=== PATIENT | female | born 1970 | race Caucasian/White ===

== ENCOUNTER 2016-07-08 06:35 | Inpatient (IN) | payer BC ==
[2016-05-27 13:29] VITALS: BMI 44.0
[2016-05-27 13:41] VITALS: BMI 44.0
--- NOTE | 2016-05-27 14:03 | PAT Medication Instructions ---
Service Date May 27, 2016. Current Home Medication List Acetaminophen (Tylenol), 1,000 MG PO PRN Amphetamine-Dextroamphetamine 20MG (Adderall 20MG), 20 MG PO TID Bupropion (Wellbutrin Sr), 150 MG PO TID Diazepam (Valium), 5 MG PO BID PRN for RN Escitalopram Oxalate (Lexapro), 20 MG PO BID Ibuprofen (Advil), 600 MG PO Q6-8H Mesalamine (Pentasa), 1,000 MG PO TID Oxycodone/Acetaminophen 10MG/325MG (Percocet 10MG/325MG), 2 TAB PO Q6H PRN for N Trazodone Hcl (Trazodone), 50 MG PO HS Medication Instructions For Your Scheduled Surgery - Check with surgeon/prescribing physician for instructions: Mesalamine (Pentasa), 1,000 MG PO TID - Check with surgeon for instructions: Ibuprofen (Advil), 600 MG PO Q6-8H - Hold the following medications the morning of surgery: Amphetamine-Dextroamphetamine 20MG (Adderall 20MG), 20 MG PO TID - Take the following medications the morning of surgery with a sip of water: Escitalopram Oxalate (Lexapro), 20 MG PO BID Diazepam (Valium), 5 MG PO BID PRN for RN Bupropion (Wellbutrin Sr), 150 MG PO TID Acetaminophen (Tylenol), 1,000 MG PO PRN Oxycodone/Acetaminophen 10MG/325MG (Percocet 10MG/325MG), 2 TAB PO Q6H PRN for N (okay to take up to 4 hours prior to surgery if needed) - Take the following medications as scheduled the night before surgery: Trazodone Hcl (Trazodone), 50 MG PO HS Escitalopram Oxalate (Lexapro), 20 MG PO BID Diazepam (Valium), 5 MG PO BID PRN for RN Bupropion (Wellbutrin Sr), 150 MG PO TID Acetaminophen (Tylenol), 1,000 MG PO PRN Amphetamine-Dextroamphetamine 20MG (Adderall 20MG), 20 MG PO TID Oxycodone/Acetaminophen 10MG/325MG (Percocet 10MG/325MG), 2 TAB PO Q6H PRN for N If you have any questions please call us at [phone] (Frida Lawton PA-C ) or [phone] or [phone]
--- NOTE | 2016-05-27 14:54 | DIAGNOSTIC IMAGING REPORT ---
CHEST PREADMISSION(PA/LAT) CLINICAL HISTORY: Preoperative chest COMPARISON STUDY: No previous studies for comparison. FINDINGS: The cardiac and mediastinal contours are normal. There is no evidence of focal pulmonary consolidation. There is no evidence of failure. No pleural effusions are visualized.[ IMPRESSION: No active disease in the chest. Electronically signed by: Eligio Desir M.D. 05/27/2016 2:53 PM Dictated Date/Time: 05/27/2016 2:53 PM
[2016-05-27 15:37] LABS: PROTHROMBIN TIME (PATIENT) 10.4 SECONDS (9.0-12.0)
[2016-05-28 06:25] LABS: ESTIMATED AVERAGE GLUCOSE 131 mg/dl; HA1C FLAG Normal (Normal)
--- NOTE | 2016-07-07 07:45 | History and Physical ---
History & Physical Date of Service Jul 07, 2016. History & Physical PROCEDURE: Left knee replacement. HISTORY OF PRESENT ILLNESS: Julia is a pleasant 45-year-old female who presents for preoperative evaluation prior to her left knee replacement. She states she has been having pain in this knee for many years now, which has gradually worsened, has not now gotten to the point it is affecting her daily activities including walking, standing, going up and down steps. She has tried oral anti-inflammatories without relief. She has tried Synvisc-One in both of her knees, without relief. She has had previous knee arthroscopies. At this point in time, she has failed conservative measures and after discussing further care would like to proceed with a left knee replacement. she recently had her right knee replaced and is doing well. PAST MEDICAL HISTORY: 1. Sleep apnea, uses CPAP machine. 2. Obesity. 3. Anxiety/depression. ALLERGIES: No known drug allergies. MEDICATIONS: 1. Adderall 20 mg t.i.d. 2. Lexapro 20 mg in the morning, 1/2 tablet at noon. 3. Wellbutrin 150 mg 2 in the morning, 1 at noon. 4. Ibuprofen as needed. 5. Acetaminophen 1000 mg 3 times a day. 6. Valium 5 mg 1/2 tablet prior to bed. 7. Melatonin. PAST SURGICAL HISTORY: 1. Left knee arthroscopy with lateral release. 2. Repair of hernia. 3. Laparoscopic cholecystectomy. 4. Right TKA May 2016 FAMILY HISTORY: Noncontributory. SOCIAL HISTORY: The patient denies a history of smoking or tobacco use. No alcohol consumption. REVIEW OF SYSTEMS: Otherwise negative. Please see HPI for pertinent positives. PHYSICAL EXAMINATION: GENERAL: Pleasant female in no acute distress, alert and oriented x3. She is 5 foot 6, weighs 260 pounds. HEENT: Normocephalic, atraumatic. CARDIAC: Regular rate and rhythm. No murmurs or gallops appreciated. Resting pulse 80 beats per minute. LUNGS: Clear to auscultation without rales or wheeze bilaterally. ABDOMEN: Soft, nontender. Bowel sounds present. EXTREMITIES: Left lower extremity is neurovascularly intact. Calves are soft and nontender. DP pulse +2. Overall has varus alignment. Has positive crepitation with motion, range of motion is 0/5/115. Her knee is ligamentously stable. She has diffuse tenderness to the knee. IMAGING: Reviewed of the left knee show complete loss of medial joint space with [id number] changes including joint space narrowing, subchondral sclerosis, osteophyte formation noted. Also has significant patellofemoral DJD. IMPRESSION: 1. Left knee degenerative joint disease. 2. Past medical history as outlined above. PLAN: Further care discussed with patient. At this point in time, has failed conservative measures and would like to proceed with a Left knee replacement. Will place on aspirin 81 mg p.o. b.i.d. for a month postop. Will plan of discharge home with home health physical therapy.
[~2016-07-08] VITALS: Ht 167.6 cm; Wt 124.6 kg
[2016-07-08] VITALS (10 sets, daily range): BP systolic 101–159; BP diastolic 58–87; PULSE 82–96; TEMP 36.6–37.4; O2SAT 94–98; Ht 167.6 cm; Wt 124.6 kg
[2016-07-08] MEDS: TRANEXAMIC ACID INJ 1,000 MG in SODIUM CHLORIDE 0.9% 100ML 100 ML IV SCH ×2 (06:00→06:30)
[~2016-07-08 06:35] MED LIST: ACET-1256 PO; ACETAMINOPHEN 500 MG TAB PO SCH; AMPH20TA2 PO; BUPR-79 PO; CEFAZOLIN 3000 MG/65 ML D5W 65 ML IV SCH; CeleBREX 200 MG CAP PO SCH; DEXAMETHASONE 4 MG TAB PO SCH; DIAZ-165 PO; ESCI1TAB10 PO; FAMOTIDINE 20 MG TAB PO SCH; GABAPENTIN 300 MG CAP PO SCH; IBUP-1050 PO; LACTATED RINGER'S 1000ML 1,000 ML IV SCH; LACTATED RINGER'S 1000ML 500 ML IV ONE; LACTATED RINGER'S 1000ML IV SCH; METOCLOPRAMIDE HCL 10 MG TAB PO SCH; OXYC-106 PO; PNT500 PO; ROPIVACAINE 5MG/ML 30 ML 150 MG, BUPIVACAINE/EPINEPHR 0.5% MPF 30 ML, KETOROLAC TROMETH... INFIL SCH; TRAZ50TA35 PO
[2016-07-08] MEDS ORDERED: PROPOFOL IV EMULSION 10 MG/ML 20 ML VIAL IV ONE ×3 (06:58→09:23)
[2016-07-08] MEDS ORDERED: ONDANSETRON INJ 2 MG/ML 2 ML VIAL ONE (06:58)
[2016-07-08] MEDS ORDERED: MIDAZOLAM HCL 1 MG/ML 2ML VIAL ONE ×2 (06:58→08:29)
[2016-07-08] MEDS ORDERED: FENTANYL CITRATE INJ 50 MCG/1 ML 2 ML VIAL ONE (06:58)
--- NOTE | 2016-07-08 07:08 | History & Physical Bridge Note ---
H&P Re-Evaluation Bridge Note: I have examined the patient, reviewed the History & Physical and in the interval since the performance of the History & Physical I have noted the following changes of clinical significance: No changes noted
[2016-07-08] MEDS ORDERED: ORTHO JOINT ANESTHETIC ONE (07:12)
[2016-07-08] MEDS ORDERED: POVIDONE-IODINE OP SOLN 30 ML BTL ONE (07:12)
[2016-07-08] MEDS ORDERED: BACITRACIN 50000 UNIT VIAL ONE (07:13)
[2016-07-08] MEDS ORDERED: BUPIVACAINE 0.5 % 5 MG/1 ML PF 10ML VIAL ONE (07:41)
[2016-07-08] MEDS ORDERED: BUPIVACAINE 0.25% 30 ML VIAL ONE (07:42)
[2016-07-08] MEDS ORDERED: ATROPINE SULFATE 0.1 MG/ML 5ML SYR IV PRN (07:45)
[2016-07-08] MEDS ORDERED: EpHEDrine SULFATE INJ 50 MG/ML AMP IV PRN (07:45)
[2016-07-08] MEDS ORDERED: FENTANYL CITRATE INJ 50 MCG/1 ML 2 ML VIAL IV PRN (07:45)
[2016-07-08] MEDS ORDERED: ONDANSETRON INJ 2 MG/ML 2 ML VIAL IV PRN ×2 (07:45→10:15)
--- NOTE | 2016-07-08 09:06 | History and Physical ---
History & Physical Date of Service Jul 08, 2016. History & Physical PROCEDURE: Right knee replacement. HISTORY OF PRESENT ILLNESS: Julia is a pleasant 45-year-old female who presents for preoperative evaluation prior to her right knee replacement. She states she has been having pain in this knee for many years now, which has gradually worsened, has not now gotten to the point it is affecting her daily activities including walking, standing, going up and down steps. She has tried oral anti-inflammatories without relief. She has tried Synvisc-One in both of her knees, without relief. She has had previous knee arthroscopies. At this point in time, she has failed conservative measures and after discussing further care would like to proceed with a right knee replacement. PAST MEDICAL HISTORY: 1. Sleep apnea, uses CPAP machine. 2. Obesity. 3. Anxiety/depression. ALLERGIES: No known drug allergies. MEDICATIONS: 1. Adderall 20 mg t.i.d. 2. Lexapro 20 mg in the morning, 1/2 tablet at noon. 3. Wellbutrin 150 mg 2 in the morning, 1 at noon. 4. Ibuprofen as needed. 5. Acetaminophen 1000 mg 3 times a day. 6. Valium 5 mg 1/2 tablet prior to bed. 7. Melatonin. PAST SURGICAL HISTORY: 1. Left knee arthroscopy with lateral release. 2. Repair of hernia. 3. Laparoscopic cholecystectomy. FAMILY HISTORY: Noncontributory. SOCIAL HISTORY: The patient denies a history of smoking or tobacco use. No alcohol consumption. REVIEW OF SYSTEMS: Otherwise negative. Please see HPI for pertinent positives. PHYSICAL EXAMINATION: GENERAL: Pleasant female in no acute distress, alert and oriented x3. She is 5 foot 6, weighs 260 pounds. HEENT: Normocephalic, atraumatic. CARDIAC: Regular rate and rhythm. No murmurs or gallops appreciated. Resting pulse 80 beats per minute. LUNGS: Clear to auscultation without rales or wheeze bilaterally. ABDOMEN: Soft, nontender. Bowel sounds present. EXTREMITIES: Right lower extremity is neurovascularly intact. Calves are soft and nontender. DP pulse +2. Overall has varus alignment. Has positive crepitation with motion, range of motion is 0/5/115. Her knee is ligamentously stable. She has diffuse tenderness to the knee. IMAGING: Reviewed of the right knee show complete loss of medial joint space with [id number] changes including joint space narrowing, subchondral sclerosis, osteophyte formation noted. Also has significant patellofemoral DJD. IMPRESSION: 1. Right knee degenerative joint disease. 2. Past medical history as outlined above. PLAN: Further care discussed with patient. At this point in time, has failed conservative measures and would like to proceed with a right knee replacement. Will place on aspirin 81 mg p.o. b.i.d. for a month postop. Will plan of discharge home with home health physical therapy.
--- NOTE | 2016-07-08 09:37 | [facility] Post Operative Brief Note ---
Immediate Operative Summary Operative Date Jul 08, 2016. Pre-Operative Diagnosis severe djd rt knee Post-Operative Diagnosis severe djd rt knee Procedure(s) Performed Rt total knee arthroplasty keaton almanza 2 Surgeon Abdias Jetting Machine Operator Surgeon(s) Nicole Estimated Blood Loss 5cc Findings severe djd rt knee Specimens bone and cartilage Complication(s) None Disposition Recovery Room / PACU
--- NOTE | 2016-07-08 10:01 | OPERATIVE REPORT ---
DATE OF OPERATION: 07/08/2016 PREOPERATIVE DIAGNOSIS: Severe end-stage tricompartmental degenerative joint disease, right knee. POSTOPERATIVE DIAGNOSIS: Severe end-stage tricompartmental degenerative joint disease, right knee. PROCEDURE: Right total knee arthroplasty utilizing Fisher \T\ Nephew Journey II nonblock total knee arthroplasty size 4 femur, 3 tibia, 10 poly, and 29 oval patella. SURGEON: Bennie Calero DO PROTECTIVE SIGNAL SUPERINTENDENT: Octavio Dash PA-C who was necessary for prepping, draping, retraction, wound closure of deep fascia, subQ and skin and was necessary for the case. ESTIMATED BLOOD LOSS: 5 mL. TOURNIQUET TIME: 40 minutes. COMPLICATIONS: None. HISTORY OF PRESENT ILLNESS: The patient is a 45-year-old white female with severe end-stage tricompartmental degenerative joint disease. She has failed attempts of previous conservative management and in light of her young age including bracing, anti-inflammatories, corticosteroid injections, viscosupplementations, relative rest, activity modification and after failing all attempts at conservative management, decision was made. Risks and complications were discussed regarding right total knee arthroplasty. DESCRIPTION OF PROCEDURE: The patient was properly prepped and draped in supine position for total knee arthroplasty after identifying the appropriate surgical site. An anterior midline incision was made through the subcutaneous tissues down to the region of the extensor mechanism. A medial parapatellar incision was subsequently made. Meticulous hemostasis was obtained and performed at all times. The patella having been subluxed lateralward, medial and lateral meniscal remnants were excised. The patellar cut was then initially made and was sized to the appropriate size. After subluxing the tibia forward the appropriate meniscal fragments having been removed the distal femur was then cut first utilizing a Fisher and Nephew block. The distal femoral cuts and chamfer cuts were all made under direct visualization and the proximal tibial osteotomy cut was also made utilizing Fisher and Nephew blocks and checked with an extramedullary guide. The appropriate trial components on the femur and tibia were placed. Appropriate trial spacers were used to check flexion and extension gaps. With flexion and extension gaps being equal, the components were then subsequently after thorough irrigation and debridement lavage components were then subsequently cemented in the following order: femur, tibia and patella. Exparel was used for intraoperative anesthesia, the medial parapatellar incision was closed utilizing #1 Vicryl, subQ was closed with 2-0 Vicryl, skin was closed with skin clips. A sterile compression dressing was placed. The patient was taken to recovery room in stable condition. Due to the complex nature of the procedure, the entire surgery was performed with the operational assistance of Octavio Dash PA-C. The medical office receptionist assistant, under direct supervision, was involved in the actual performance of all aspects of the surgical procedure including hemostasis, tissue retraction and incision, instrument management, patient positioning, and wound closure. I attest to the content of the Intraoperative Record and any orders documented therein. Any exceptio ns are noted below.
[2016-07-08] MEDS ORDERED: ALUMINUM/MAGNESIUM/SIMETH (MAALOX MAX) 30 ML UDC PO PRN (10:15)
[2016-07-08] MEDS ORDERED: ZOLPIDEM TARTRATE 5 MG TAB PO PRN (10:15)
[2016-07-08] MEDS ORDERED: DiphenhydrAMINE HCL 50 MG/ML VIAL IV PRN (10:15)
[2016-07-08] MEDS ORDERED: MAGNESIUM HYDROXIDE SUSP 30 ML UDC PO PRN (10:15)
[2016-07-08] MEDS ORDERED: BISACODYL 10 MG SUPP PR PRN (10:15)
[2016-07-08] MEDS ORDERED: MoRPHine SULFATE 2 MG/ML CARP IV PRN (10:15)
--- NOTE | 2016-07-08 10:43 | DIAGNOSTIC IMAGING REPORT ---
TWO VIEWS RIGHT KNEE CLINICAL HISTORY: Postoperative examination. FINDINGS: AP and crosstable lateral portable views of the right knee are obtained. A right knee arthroplasty is in near anatomic alignment. There has been undersurface remodeling of the patella. No acute fracture is seen. There are expected postoperative changes around the knee including skin clips, a surgical drain, soft tissue edema, and subcutaneous gas. IMPRESSION: Expected postoperative changes status post right knee arthroplasty. No acute fracture is seen. Electronically signed by: Daniel Juarez M.D. 07/08/2016 10:41 AM Dictated Date/Time: 07/08/2016 10:41 AM
--- NOTE | 2016-07-08 11:19 | Anesthesiology Progress Note ---
Anesthesia Post Op Note Date & Time Jul 08, 2016 at 11:20 Vital Signs Pain Intensity: 0 Vital Signs Past 12 Hours Date Time Temp Pulse Resp B/P Pulse Ox O2 Delivery O2 Flow Rate FiO2 07/08/16 10:45 37.1 82 14 108/59 98 Nasal Cannula 2 07/08/16 10:35 80 15 116/63 98 Nasal Cannula 2 07/08/16 10:20 83 16 94/62 100 Mask 10 07/08/16 10:10 36.2 86 16 97/61 100 Mask 10 07/08/16 07:32 36.6 90 20 159/87 98 Room Air 07/08/16 06:45 36.6 90 20 159/87 98 Room Air Notes Mental Status: alert / awake / arousable, participated in evaluation Pt Amnestic to Procedure: Yes Nausea / Vomiting: adequately controlled Pain: adequately controlled Airway Patency, RR, SpO2: stable & adequate BP & HR: stable & adequate Hydration State: stable & adequate Neuraxial Anesthesia: was administered, sensory block is resolving Anesthetic Complications: no major complications apparent
[2016-07-08] MEDS: D5W AND 1/2NSS + 20MEQ KCL 1,000 ML IV SCH ×2 (12:15→21:33)
[2016-07-08] MEDS ORDERED: MoRPHine SULFATE 10 MG/ML CARP/VIAL IV PRN (12:15)
[2016-07-08] MEDS ORDERED: INFLUENZA ADMINISTRATION CHARGE ONE (12:45)
[2016-07-08] MEDS ORDERED: INFLUENZA VIRUS QUAD VACCINE 0.5 ML SYR IM. ONE (12:45)
[2016-07-08] MEDS: KETOROLAC TROMETHAMINE 30 MG/ML VIAL IV. SCH ×2 (13:59→20:28)
[2016-07-08] MEDS: ACETAMINOPHEN 500 MG TAB PO SCH ×2 (13:59→21:34)
[2016-07-08] MEDS: BuPROPion SR 150 MG TABCR PO SCH ×2 (13:59→20:29)
[2016-07-08] MEDS: AMPHETAMINE ASP/SULF/DEXTRAMPH 20 MG TAB PO SCH ×2 (14:05→20:36)
[2016-07-08] MEDS: MESALAMINE 250 MG CAPCR PO SCH ×2 (14:21→20:30)
[2016-07-08] MEDS: OXYCODONE HCL IR 5 MG TAB (IMMEDIATE RELEASE) PO PRN ×2 (14:27→21:34)
[2016-07-08] MEDS: CEFAZOLIN IV 2,000 MG in DEXTROSE 5% 50ML 50 ML IV SCH ×2 (15:41→23:55)
[2016-07-08] MEDS: FERROUS GLUCONATE 324 MG TAB PO SCH (17:34)
[2016-07-08] MEDS: MoRPHine SULFATE 4 MG/ML 1 ML CARP\\VIAL IV PRN ×2 (17:35→23:55)
[2016-07-08] MEDS: TRAZODONE HCL 50 MG TAB PO SCH (20:28)
[2016-07-08] MEDS: OXYCODONE HCL 10 MG TABCR (OXYCONTIN) PO SCH (20:29)
[2016-07-08] MEDS: ESCITALOPRAM OXALATE 20 MG TAB PO SCH (20:29)
[2016-07-08] MEDS: ASPIRIN 81 MG ECTAB PO SCH (20:29)
[2016-07-08] MEDS: DOCUSATE SODIUM 100 MG CAP PO SCH (20:36)
[2016-07-08] MEDS: SENNA 8.6 MG TAB PO SCH (20:36)
[2016-07-09] VITALS (7 sets, daily range): BP systolic 92–145; BP diastolic 67–85; PULSE 78–97; TEMP 36.6–36.9; O2SAT 96–98
[2016-07-09] MEDS: KETOROLAC TROMETHAMINE 30 MG/ML VIAL IV. SCH ×2 (02:27→07:29)
[2016-07-09] MEDS: OXYCODONE HCL IR 5 MG TAB (IMMEDIATE RELEASE) PO PRN ×4 (02:32→18:11)
[2016-07-09] MEDS: ACETAMINOPHEN 500 MG TAB PO SCH ×3 (06:16→21:14)
[2016-07-09 06:39] LABS: HEMATOCRIT 31.2 % (37-47); MEAN CELL VOLUME 92.3 fL (80-100); MEAN CORPUSCULAR HEMOGLOBIN 30.5 pg (25-34); MEAN PLATELET VOLUME 9.2 fL (7.4-10.4); PLATELET COUNT 403 K/uL (130-400); RED BLOOD COUNT 3.38 M/uL (4.2-5.4); WHITE BLOOD COUNT 17.66 K/uL (4.8-10.8)
[2016-07-09] MEDS ORDERED: CETIRIZINE HCL 10 MG TAB PO STA (06:50)
--- NOTE | 2016-07-09 06:51 | Orthopedic Progress Note ---
Orthopedic Progress Note Date of Service Jul 09, 2016. Subjective Post OP Day: 1 (POD #1 s/p Right TKA) Reports: feeling well, pain controlled w PO medications, Denies: SOB, calf pain , chest pain, complaints, light headedness, nausea / vomiting Objective calves soft nontender, N/V intact, capillary refill less than 2 sec., dressing C /D/I, A&O x3, toes mobile, hemovac drainage (125cc/8 hours) Date Time Temp Pulse Resp B/P Pulse Ox O2 Delivery O2 Flow Rate FiO2 07/09/16 02:45 36.7 78 16 123/68 98 Room Air 07/08/16 23:50 Room Air 07/08/16 22:50 37.0 85 16 117/72 94 Room Air 07/08/16 19:05 37.0 87 16 128/75 95 Room Air 07/08/16 15:10 Nasal Cannula 2.0 07/08/16 15:03 37.4 96 18 135/75 97 Nasal Cannula 2.0 07/08/16 14:10 36.8 87 20 117/79 98 Nasal Cannula 2.0 07/08/16 13:15 88 19 111/74 97 Room Air 07/08/16 12:12 36.9 82 105/69 98 Nasal Cannula 2.0 07/08/16 11:48 84 19 113/58 98 Room Air 07/08/16 11:15 98 Nasal Cannula 2.0 07/08/16 11:15 36.9 92 18 101/61 98 Nasal Cannula 2.0 07/08/16 11:15 Nasal Cannula 2.0 07/08/16 10:45 37.1 82 14 108/59 98 Nasal Cannula 2 07/08/16 10:35 80 15 116/63 98 Nasal Cannula 2 07/08/16 10:20 83 16 94/62 100 Mask 10 07/08/16 10:10 36.2 86 16 97/61 100 Mask 10 07/08/16 07:32 36.6 90 20 159/87 98 Room Air Laboratory Results 24 Hours: Test 07/09/16 05:57 Hematocrit 31.2 % Hemoglobin 10.3 g/dL Assessment & Plan Assessment: POD #1 s/p Right TKA -PT/OT -dvt proph w/ BRENDA/SCD/ASA -plan for d/c home with OPPT when stable 1. Sleep apnea, uses CPAP machine. 2. Obesity. 3. Anxiety/depression. Discharge Planning Discharge Planning: home with oppt DVT Prophylaxis: TEDs, SCDs, ASA Therapy: Physical Therapy
[2016-07-09 07:13] LABS: BUN/CREATININE RATIO 19.5 (10-20); CALCIUM 8.4 mg/dl (8.5-10.1); CREATININE 0.73 mg/dl (0.60-1.20); POTASSIUM 4.6 mmol/L (3.5-5.1)
--- NOTE | 2016-07-09 07:14 | Discharge Instructions ---
Discharge Instructions Date of Service Jul 09, 2016. Admission Reason for Admission: Right Knee Osteoarthritis Discharge Discharge Diagnosis / Problem: s/p right total knee replacement Discharge Goals Goal(s): Decrease discomfort, Improve function, Increase independence Activity Recommendations Activity Limitations: as noted below Weightbearing Status: Right weightbearing (as tolerated) . Instructions / Follow-Up Instructions / Follow-Up ACTIVITY RECOMMENDATIONS: SELF CARE INSTRUCTIONS AFTER TOTAL KNEE REPLACEMENT A. You may need to continue a physical therapy program after discharge from the hospital. There are several options available to you. Your doctor will assist you in selecting the best one for you. 1. An out-patient facility 2 to 3 times a week for therapy or home therapy. 2. Continue working on all exercises taught to you in the hospital. Your goals should be to increase bending of your knee to 90 degrees and beyond and to fully straighten your knee. B. You may progress at your own pace from walking with a walker or crutches to a cane; then to no assistive devices. C. Make walking a part of your daily routine. Be up as much as comfortable with rest periods throughout the day. Rest with leg elevation is very important. Use the ice wrap frequently for the first 3-4 weeks. D. There are no restrictions on activities. You may ride in a car, shop, participate in beef skinner and all social activities. E. Wear the long elastic stockings (BRENDA hose) 20 hours a day for 2 weeks after surgery. They can be removed several times a day for laundering and for a bath. F. You may shower, no tub baths until cleared by your doctor. SPECIAL CARE INSTRUCTIONS: VERY IMPORTANT TO READ AND REVIEW A. There are a few signs you need to watch for after you are home. Call [facility] if you notice any of the followin. Increased severe knee pain. Some pain is expected especially when you exercise. 2. Increased swelling in your leg or knee; pain or swelling of the calf muscle in either lower leg. 3. Any fluid drainage from the incision. 4. Shortness of breath or chest pain. B. Please call [facility] at if you have any concerns or questions about your operation or recovery. The doctor or his nurse will return your call promptly. C. You must take antibiotics before dental work, bladder, bowel or other surgery. Your doctor will provide you with a permanent care to carry describing this precaution. IMPORTANT: * REMEMBER TO TAKE ASPIRIN, 81 MG, TWICE DAILY FOR 4 WEEKS UNLESS OTHERWISE DIRECTED. THIS IS YOUR BLOOD THINNER. * HIGH RISK PATIENTS MAY BE PRESCRIBED A STRONGER BLOOD THINNER. THIS WILL BE PROVIDED AT DISCHARGE. * CALL IF INCREASED PAIN, REDNESS, DRAINAGE OR FEVER GREATER THAT 101. * WEAR BRENDA HOSE 20 HOURS PER DAY FOR 2 WEEKS. * YOU MAY HAVE A LARGE BAND-AID LIKE DRESSING (SILVERON). THIS WILL REMAIN ON YOUR INCISION FOR 7 DAYS, THEN CAN BE REMOVED. IF INCISION IS LEAKING THROUGH DRESSING, CALL THE OFFICE . FOLLOW UP VISIT: If appointment is not already scheduled: Please call [facility] [place] to make a follow-up appointment for 2 weeks after your surgery at . Current Hospital Diet Patient's current hospital diet: Regular Diet Discharge Diet Recommended Diet: Regular Diet Procedures Procedures Performed: Right total knee arthroplasty Pending Studies Studies pending at discharge: no Laboratory Results Hemoglobin A1c Test 05/27/16 14:07 Range/Units Estimated Average Glucose 131 mg/dl Hemoglobin A1c 6.2 H 4.5-5.6 % Medical Emergencies . Who to Call and When: Medical Emergencies: If at any time you feel your situation is an emergency, please call [phone] immediately. . Non-Emergent Contact Non-Emergency issues call your: Primary Care Provider, Surgeon . "Provider Documentation" section prepared by Miguel Angel Robertson. VTE Core Measure Inpt VTE Proph given/why not?: Other Anticoagulation (ASA 81mg po bid x 1 month ), T.E.D. Stockings, SCD's [place] Drug Monitoring Program Search Results: patient reviewed within database, no issues identified ( patient instructed that during her post op period to contact us for pain medications to avoid receiving from multiple providers.) Drug Monitoring Findings: Prescription for oxycodone from PCP given beginning of june, no issues identified. will receive post op pain medications from dr ontiveros or miguel angel robertson pac
[2016-07-09] MEDS: D5W AND 1/2NSS + 20MEQ KCL 1,000 ML IV SCH (07:28)
[2016-07-09] MEDS: DOCUSATE SODIUM 100 MG CAP PO SCH ×2 (08:35→21:00)
[2016-07-09] MEDS: FERROUS GLUCONATE 324 MG TAB PO SCH ×3 (08:35→18:10)
[2016-07-09] MEDS: ASPIRIN 81 MG ECTAB PO SCH ×2 (08:35→21:09)
[2016-07-09] MEDS: AMPHETAMINE ASP/SULF/DEXTRAMPH 20 MG TAB PO SCH ×3 (08:35→21:00)
[2016-07-09] MEDS: MULTIVITAMIN TAB PO SCH (08:36)
[2016-07-09] MEDS: OXYCODONE HCL 10 MG TABCR (OXYCONTIN) PO SCH ×2 (08:36→21:06)
[2016-07-09] MEDS: ESCITALOPRAM OXALATE 20 MG TAB PO SCH ×2 (08:36→21:10)
[2016-07-09] MEDS: PANTOprazole SOD 40 MG TAB PO SCH (08:37)
[2016-07-09] MEDS: BuPROPion SR 150 MG TABCR PO SCH ×3 (08:37→21:09)
[2016-07-09] MEDS: MESALAMINE 250 MG CAPCR PO SCH ×3 (08:37→21:07)
[2016-07-09] MEDS: MoRPHine SULFATE 4 MG/ML 1 ML CARP\\VIAL IV PRN ×4 (08:38→21:56)
--- NOTE | 2016-07-09 13:42 | Anesthesiology Progress Note ---
Anesthesia Post Op Note Date & Time Jul 09, 2016 at 13:42 Vital Signs Vital Signs Past 12 Hours Date Time Temp Pulse Resp B/P Pulse Ox O2 Delivery O2 Flow Rate FiO2 07/09/16 11:35 36.6 97 20 145/85 97 Room Air 07/09/16 09:33 98 Room Air 07/09/16 08:24 Room Air 07/09/16 08:02 36.7 78 19 133/78 98 Room Air 07/09/16 02:45 36.7 78 16 123/68 98 Room Air Notes Mental Status: alert / awake / arousable, participated in evaluation Pt Amnestic to Procedure: Yes Nausea / Vomiting: adequately controlled Pain: adequately controlled Airway Patency, RR, SpO2: stable & adequate BP & HR: stable & adequate Hydration State: stable & adequate Neuraxial Anesthesia: sensory block resolved Anesthetic Complications: no major complications apparent
[2016-07-09] MEDS: SENNA 8.6 MG TAB PO SCH (21:00)
[2016-07-09] MEDS: CeleBREX 200 MG CAP PO SCH (21:07)
[2016-07-09] MEDS: TRAZODONE HCL 50 MG TAB PO SCH (21:08)
[2016-07-09] MEDS ORDERED: CeleBREX 200 MG CAP PO STA (21:52)
[2016-07-09] MEDS ORDERED: MoRPHine SULFATE 4 MG/ML 1 ML CARP\\VIAL IV STA (21:52)
[2016-07-09] MEDS ORDERED: NURSING VERBAL MED ORDER ONE (22:00)
[2016-07-10] MEDS: OXYCODONE HCL IR 5 MG TAB (IMMEDIATE RELEASE) PO PRN ×3 (00:45→09:54)
[2016-07-10] MEDS: MoRPHine SULFATE 4 MG/ML 1 ML CARP\\VIAL IV PRN ×2 (00:49→06:03)
[2016-07-10] MEDS: ACETAMINOPHEN 500 MG TAB PO SCH ×2 (05:57→14:38)
[2016-07-10 06:10] VITALS: BP 125/80; PULSE 81; TEMP 36.6; O2SAT 98
--- NOTE | 2016-07-10 07:01 | Orthopedic Progress Note ---
Orthopedic Progress Note Date of Service Jul 10, 2016. Subjective Post OP Day: 2 Reports: feeling well, pain controlled w PO medications, Denies: SOB, calf pain , chest pain, complaints, light headedness, nausea / vomiting Objective calves soft nontender, N/V intact, capillary refill less than 2 sec., dressing C /D/I, A&O x3, toes mobile Date Time Temp Pulse Resp B/P Pulse Ox O2 Delivery O2 Flow Rate FiO2 07/10/16 06:10 36.6 81 16 125/80 98 Room Air 07/09/16 23:45 Room Air 07/09/16 23:00 36.8 91 18 115/72 96 Room Air 07/09/16 15:45 98 Room Air 07/09/16 15:21 36.9 97 18 92/67 98 Room Air 07/09/16 11:35 36.6 97 20 145/85 97 Room Air 07/09/16 09:33 98 Room Air 07/09/16 08:24 Room Air 07/09/16 08:02 36.7 78 19 133/78 98 Room Air Assessment & Plan Assessment: POD #2 s/p Right TKA -PT/OT -dvt proph w/ BRENDA/SCD/ASA -plan for d/c home with OPPT when stable, likely after PT today 1. Sleep apnea, uses CPAP machine. 2. Obesity. 3. Anxiety/depression. Discharge Planning Discharge Planning: home with oppt DVT Prophylaxis: TEDs, SCDs, ASA Therapy: Physical Therapy
[2016-07-10] MEDS ORDERED: CLB200 PO (07:03)
[2016-07-10] MEDS ORDERED: OXYSR10 PO (07:03)
[2016-07-10] MEDS ORDERED: RXC5 PO (07:03)
[2016-07-10] MEDS ORDERED: ACET-1138 PO (07:03)
[2016-07-10] MEDS ORDERED: ASPEC81 PO (07:03)
[2016-07-10] MEDS: CeleBREX 200 MG CAP PO SCH (08:56)
[2016-07-10] MEDS: FERROUS GLUCONATE 324 MG TAB PO SCH ×2 (08:56→14:38)
[2016-07-10] MEDS: AMPHETAMINE ASP/SULF/DEXTRAMPH 20 MG TAB PO SCH ×2 (08:56→14:40)
[2016-07-10] MEDS: OXYCODONE HCL 10 MG TABCR (OXYCONTIN) PO SCH (08:56)
[2016-07-10] MEDS: ASPIRIN 81 MG ECTAB PO SCH (08:56)
[2016-07-10] MEDS: BuPROPion SR 150 MG TABCR PO SCH ×2 (08:57→14:40)
[2016-07-10] MEDS: ESCITALOPRAM OXALATE 20 MG TAB PO SCH (08:57)
[2016-07-10] MEDS: PANTOprazole SOD 40 MG TAB PO SCH (08:57)
[2016-07-10] MEDS: MESALAMINE 250 MG CAPCR PO SCH ×2 (08:57→14:38)
[2016-07-10] MEDS: MULTIVITAMIN TAB PO SCH (08:57)
[2016-07-10] MEDS: DOCUSATE SODIUM 100 MG CAP PO SCH (09:00)
[2016-07-10 09:09] VITALS: O2SAT 95
[2016-07-10 12:01] VITALS: BP 125/80; PULSE 81; TEMP 36.6; O2SAT 95
[2016-07-10 12:02] VITALS: BP 109/78; PULSE 92; TEMP 36.7; O2SAT 95
--- NOTE | 2016-07-14 17:03 | DISCHARGE SUMMARY ---
DISCHARGE DIAGNOSIS: Degenerative joint disease, right knee. SECONDARY DIAGNOSES: Sleep apnea with use of CPAP machine, obesity, anxiety, and depression. CONSULTS: None. COMPLICATIONS: None. PROCEDURES: Right total knee arthroplasty performed by Dr. Calero on 07/08/2016. BRIEF HISTORY: As dictated in history and physical. HOSPITAL SUMMARY: The patient was admitted on the above date and had the above-noted surgery performed, which she tolerated well. On the first postoperative day, the patient was feeling well, pain was controlled and she had no complaints. Calves were soft, nontender, neurovascularly intact. Capillary refill was less than 2 seconds. Dressings were clean, dry and intact. Toes were mobile. Vital signs were stable. She is afebrile and hemoglobin was 10.3. She was started on physical therapy protocol and continued on DVT prophylaxis and pain management. By her second postoperative day, she was feeling well and pain was controlled. She had no complaints. Calves were soft, nontender, neurovascularly intact. Dressings were clean, dry and intact. Toes were mobile and vital signs were stable. She is afebrile. She was progressing well with physical therapy and it was felt that she could be discharged to home with outpatient physical therapy plan. For further review, please see chart. LAB AND X-RAY DATA: As per chart. DISCHARGE INSTRUCTIONS: The patient was discharged to home in satisfactory condition on 07/10/2016. DIET: Regular. ACTIVITY: Weightbearing as tolerated right lower extremity. Follow TK instruction sheets and special care instructions as noted. Follow up with Dr. Calero in 2 weeks. The patient to call for appointment if one has not been made for you. DISCHARGE MEDICATIONS: Acetaminophen 1000 mg p.o. q. 8 hours, aspirin 81 mg p.o. b.i.d. for 30 days, Celebrex 200 mg p.o. b.i.d., OxyContin 10 mg p.o. q. 12 hours, oxycodone 5-10 mg p.o. q. 4 hours p.r.n., resume taking Adderall 20 mg p.o. t.i.d., Wellbutrin SR 150 mg p.o. t.i.d., Lexapro 20 mg p.o. b.i.d., mesalamine 1000 mg p.o. t.i.d., and trazodone 50 mg p.o. at bedtime and stop taking previous Tylenol dosage and stop taking ibuprofen.
== END 2016-07-10 14:42 | disposition home or self-care (01) | DRG 470 ==
LOC: ENRESERVTM → ENRESERVDT → C.ACU 06:35 → C.3E 10:21 → UNDOADMIN 10:21
PROVIDERS: ADMIT Orthopaedic Surgery; ATTEND Orthopaedic Surgery
PROC: 0SRC0J9 Replacement of Right Knee Joint with Synthetic Substitute, Cemented, Open Approach (ICD-10-PCS; principal; 2016-07-08 08:15)
DX: M17.11 Unilateral primary osteoarthritis, right knee (principal); Z68.41 Body mass index [BMI] 40.0-44.9, adult; E66.01 Morbid (severe) obesity due to excess calories; G47.30 Sleep apnea, unspecified; F41.9 Anxiety disorder, unspecified; F32.9 Major depressive disorder, single episode, unspecified; R20.0 Anesthesia of skin; R00.2 Palpitations; G62.9 Polyneuropathy, unspecified; Z79.899 Other long term (current) drug therapy; Z79.891 Long term (current) use of opiate analgesic; Z79.1 Long term (current) use of non-steroidal anti-inflammatories (NSAID); Z99.89 Dependence on other enabling machines and devices; Z87.891 Personal history of nicotine dependence; Z87.19 Personal history of other diseases of the digestive system; Z23 Encounter for immunization

== ENCOUNTER 2016-09-02 09:15 | Inpatient (IN) | payer BC ==
--- NOTE | 2016-07-07 07:46 | History and Physical ---
History & Physical Date of Service Jul 07, 2016. History & Physical Date of Service Jul 07, 2016. History & Physical PROCEDURE: Left knee replacement. HISTORY OF PRESENT ILLNESS: Julia is a pleasant 45-year-old female who presents for preoperative evaluation prior to her left knee replacement. She states she has been having pain in this knee for many years now, which has gradually worsened, has not now gotten to the point it is affecting her daily activities including walking, standing, going up and down steps. She has tried oral anti-inflammatories without relief. She has tried Synvisc-One in both of her knees, without relief. She has had previous knee arthroscopies. At this point in time, she has failed conservative measures and after discussing further care would like to proceed with a left knee replacement. she recently had her right knee replaced and is doing well. PAST MEDICAL HISTORY: 1. Sleep apnea, uses CPAP machine. 2. Obesity. 3. Anxiety/depression. ALLERGIES: No known drug allergies. MEDICATIONS: 1. Adderall 20 mg t.i.d. 2. Lexapro 20 mg in the morning, 1/2 tablet at noon. 3. Wellbutrin 150 mg 2 in the morning, 1 at noon. 4. Ibuprofen as needed. 5. Acetaminophen 1000 mg 3 times a day. 6. Valium 5 mg 1/2 tablet prior to bed. 7. Melatonin. PAST SURGICAL HISTORY: 1. Left knee arthroscopy with lateral release. 2. Repair of hernia. 3. Laparoscopic cholecystectomy. 4. Right TKA May 2016 FAMILY HISTORY: Noncontributory. SOCIAL HISTORY: The patient denies a history of smoking or tobacco use. No alcohol consumption. REVIEW OF SYSTEMS: Otherwise negative. Please see HPI for pertinent positives. PHYSICAL EXAMINATION: GENERAL: Pleasant female in no acute distress, alert and oriented x3. She is 5 foot 6, weighs 260 pounds. HEENT: Normocephalic, atraumatic. CARDIAC: Regular rate and rhythm. No murmurs or gallops appreciated. Resting pulse 80 beats per minute. LUNGS: Clear to auscultation without rales or wheeze bilaterally. ABDOMEN: Soft, nontender. Bowel sounds present. EXTREMITIES: Left lower extremity is neurovascularly intact. Calves are soft and nontender. DP pulse +2. Overall has varus alignment. Has positive crepitation with motion, range of motion is 0/5/115. Her knee is ligamentously stable. She has diffuse tenderness to the knee. IMAGING: Reviewed of the left knee show complete loss of medial joint space with [id number] changes including joint space narrowing, subchondral sclerosis, osteophyte formation noted. Also has significant patellofemoral DJD. IMPRESSION: 1. Left knee degenerative joint disease. 2. Past medical history as outlined above. PLAN: Further care discussed with patient. At this point in time, has failed conservative measures and would like to proceed with a Left knee replacement. Will place on aspirin 81 mg p.o. b.i.d. for a month postop. Will plan of discharge home with home health physical therapy.
[2016-07-14 16:03] VITALS: BMI 44.0
--- NOTE | 2016-09-01 12:13 | HISTORY & PHYSICAL EXAMINATION ---
DATE OF ADMISSION: 09/02/2016 HISTORY OF PRESENT ILLNESS: The patient presents for left total knee arthroplasty. The patient is a 46-year-old white female, 5 foot 6, 260 pounds with severe end-stage DJD of bilateral knees, but the patient presents for left total knee arthroplasty. She has failed attempts at conservative management including physical therapy, anti-inflammatories, relative rest, activity modification, injections, viscosupplementations and presents for left total knee arthroplasty. PAST MEDICAL HISTORY: Significant for irregular heartbeat. The patient has sleep apnea and uses a home CPAP. The patient has no history of diabetes or thyroid disease. FAMILY HISTORY: Otherwise unremarkable and noncontributory. SOCIAL HISTORY: The patient denies history of smoking, alcohol or recreational drug use. PAST SURGICAL HISTORY: Significant for laparoscopic cholecystectomy, repair of umbilical hernia, left knee arthroscopy with lateral retinacular release. ALLERGIES: None. MEDICATIONS: Include Adderall 20 mg t.i.d., Lexapro 20 mg in the a.m., half tablet at noon, Wellbutrin 150 mg SR 2 in the a.m. and 1 at noon, ibuprofen 800 mg t.i.d., acetaminophen 1000 mg t.i.d., Valium 5 mg one-half tablet at bedtime. PHYSICAL EXAMINATION: GENERAL: Reveals a very pleasant 46-year-old white female with severe advanced end-stage DJD of the left knee. The patient presents for left total knee arthroplasty after failing all attempts at conservative management as noted above. HEAD, EYES, EARS, NOSE, AND THROAT: Otherwise unremarkable, atraumatic, normocephalic. HEART: Regular at this 68 beats per minute. No murmurs are noted. LUNGS: Clear. No rales, rhonchi, or wheezes noted. ABDOMEN: Soft, nontender, nondistended. Bowel sounds are present in all 4 quadrants. RECTAL: No rectal examination was performed. MUSCULOSKELETAL EXAMINATION: Consistent with that of severe end-stage DJD of bilateral knees. Plan is for left total knee arthroplasty, postoperative pain management, DVT prophylaxis. Imaging reveals the right knee reveals evidence of complete loss of medial joint space with bone to bone changes, subchondral sclerosis, osteoarthritis. PLAN: Total knee arthroplasty, postoperative pain management, DVT prophylaxis.
[~2016-09-02] VITALS: Ht 167.6 cm; Wt 122.7 kg
[2016-09-02] VITALS (7 sets, daily range): BP systolic 111–148; BP diastolic 71–100; PULSE 84–98; TEMP 36.8–37.6; O2SAT 96–99; Ht 167.6 cm; Wt 122.7 kg
[2016-09-02] MEDS: TRANEXAMIC ACID INJ 1,000 MG in SODIUM CHLORIDE 0.9% 100ML 100 ML IV SCH ×2 (06:30→10:07)
[~2016-09-02 09:15] MED LIST changes: +ACET-1138 PO; -ACET-1256 PO; +ASPEC81 PO; +BUPIVACAINE 0.25% 30 ML VIAL ONE; +BUPIVACAINE 0.5 % 5 MG/1 ML PF 10ML VIAL ONE; +CLB200 PO; -DIAZ-165 PO; -IBUP-1050 PO; -LACTATED RINGER'S 1000ML 500 ML IV ONE; +LACTATED RINGER'S 500 ML IV SCH; -OXYC-106 PO; +OXYSR10 PO; +RXC5 PO
[2016-09-02] MEDS ORDERED: LACTATED RINGER'S 1000ML 1,000 ML IV PRN (09:57)
[2016-09-02] MEDS ORDERED: ONDANSETRON INJ 2 MG/ML 2 ML VIAL IV PRN ×2 (10:00→12:15)
[2016-09-02] MEDS ORDERED: FENTANYL CITRATE INJ 50 MCG/1 ML 2 ML VIAL IV PRN (10:00)
[2016-09-02] MEDS ORDERED: LIDOCAINE HCL 2% 2 ML VIAL (20MG/ML) ONE (10:12)
[2016-09-02] MEDS ORDERED: PROPOFOL IV EMULSION 10 MG/ML 20 ML VIAL IV ONE ×4 (10:12→12:12)
[2016-09-02] MEDS ORDERED: MIDAZOLAM HCL 1 MG/ML 2ML VIAL ONE ×2 (10:13)
[2016-09-02] MEDS ORDERED: FENTANYL CITRATE INJ 50 MCG/1 ML 2 ML VIAL ONE (10:13)
[2016-09-02] MEDS ORDERED: ORTHO JOINT ANESTHETIC ONE (10:43)
[2016-09-02] MEDS ORDERED: BACITRACIN 50000 UNIT VIAL ONE (10:43)
[2016-09-02] MEDS ORDERED: POVIDONE-IODINE OP SOLN 30 ML BTL ONE (10:43)
[2016-09-02] MEDS ORDERED: ONDANSETRON INJ 2 MG/ML 2 ML VIAL ONE (11:23)
[2016-09-02] MEDS: SODIUM CHLORIDE 0.9% 1000ML 1,000 ML IV SCH ×3 (12:03→21:13)
--- NOTE | 2016-09-02 12:03 | [facility] Post Operative Brief Note ---
Immediate Operative Summary Operative Date September 02, 2016. Pre-Operative Diagnosis Severe end stage degenerative joint disease-Left knee Post-Operative Diagnosis Same Procedure(s) Performed Left total knee arthroplasty Surgeon Dr Calero Transformer Stock Clerk Surgeon(s) Octavio Bowling Pa-C Estimated Blood Loss 5ml Findings severe djd lt knee Specimens a. left knee- bone and tissue Complication(s) None Disposition Recovery Room / PACU
[2016-09-02] MEDS ORDERED: METOCLOPRAMIDE HCL INJ 5 MG/ML 2 ML VIAL IV PRN (12:15)
[2016-09-02] MEDS ORDERED: ALUMINUM/MAGNESIUM/SIMETH (MAALOX MAX) 30 ML UDC PO PRN (12:15)
[2016-09-02] MEDS ORDERED: BISACODYL 10 MG SUPP PR PRN (12:15)
[2016-09-02] MEDS ORDERED: DiphenhydrAMINE HCL 50 MG/ML VIAL IV PRN (12:15)
[2016-09-02] MEDS ORDERED: ZOLPIDEM TARTRATE 5 MG TAB PO PRN (12:15)
[2016-09-02] MEDS ORDERED: MAGNESIUM HYDROXIDE SUSP 30 ML UDC PO PRN (12:15)
[2016-09-02] MEDS ORDERED: SOD PHOSPHATE/SOD BIPHOSPHATE ENEMA 132 ML BTL PR PRN (12:15)
--- NOTE | 2016-09-02 12:21 | OPERATIVE REPORT ---
DATE OF OPERATION: 09/02/2016 PREOPERATIVE DIAGNOSIS: Severe end-stage degenerative joint disease, left knee. POSTOPERATIVE DIAGNOSIS: Severe end-stage degenerative joint disease, left knee. PROCEDURE: Left total knee arthroplasty utilizing Fisher \T\ Nephew Journey II nonblock total knee arthroplasty, size 4 femur, 3 tibia, 10 poly, 29 oval patella. SURGEON: Dr. Calero. TECHNICAL AID: JENN Borrego, who was necessary for prepping, draping, retraction, and wound closure of deep fascia, subcu and skin, and was necessary for the case. ESTIMATED BLOOD LOSS: 5 mL COMPLICATIONS: None. TOURNIQUET TIME: 45 minutes. HISTORY: The patient presents as a very pleasant 46-year-old white female who had previously undergone successful right total knee arthroplasty, who presents today for left total knee arthroplasty. She has had ongoing complaints of pain that have not responded to conservative management and presents for total knee arthroplasty. OPERATION AND FINDINGS: PROCEDURE: The patient was properly prepped and draped in supine position for total knee arthroplasty after identifying the appropriate surgical site. An anterior midline incision was made through the subcutaneous tissues down to the region of the extensor mechanism. A medial parapatellar incision was subsequently made. Meticulous hemostasis was obtained and performed at all times. The patella having been subluxed lateralward, medial and lateral meniscal remnants were excised. The patellar cut was then initially made and was sized to the appropriate size. After subluxing the tibia forward the appropriate meniscal fragments having been removed the distal femur was then cut first utilizing a Fisher and Nephew Journey II nonblock. The distal femoral cuts and chamfer cuts were all made under direct visualization and the proximal tibial osteotomy cut was also made utilizing Fisher and Nephew Journey II nonblocks and checked with an extramedullary guide. The appropriate trial components on the femur and tibia were placed. Appropriate trial spacers were used to check flexion and extension gaps. With flexion and extension gaps being equal, the components were then subsequently after thorough irrigation and debridement lavage components were then subsequently cemented in the following order: femur, tibia and patella. Exparel was used for intraoperative anesthesia, the medial parapatellar incision was closed utilizing #1 Vicryl, subQ was closed with 2-0 Vicryl, skin was closed with skin clips. A sterile compression dressing was placed. The patient was taken to recovery room in stable condition. Due to the complex nature of the procedure, the entire surgery was performed with the operational assistance of JENN Borrego. The instructional assistant, under direct supervision, was involved in the actual performance of all aspects of the surgical procedure including hemostasis, tissue retraction and incision, instrument management, patient positioning, and wound closure. I attest to the content of the Intraoperative Record and any orders documented therein. Any exceptio ns are noted below.
[2016-09-02] MEDS ORDERED: MoRPHine SULFATE 2 MG/ML CARP IV PRN ×2 (12:45→14:45)
--- NOTE | 2016-09-02 12:51 | DIAGNOSTIC IMAGING REPORT ---
TWO VIEWS LEFT KNEE CLINICAL HISTORY: Postoperative examination. FINDINGS: AP and crosstable lateral portable views of the left knee are obtained. A left knee arthroplasty is in near anatomic alignment. There has been undersurface remodeling of the patella. No acute fracture is seen. There are expected postoperative changes around the knee including skin clips, a surgical drain, soft tissue edema, and subcutaneous gas. IMPRESSION: Expected postoperative changes status post left knee arthroplasty. No acute fracture is seen. Electronically signed by: Daniel Juarez M.D. 09/02/2016 12:50 PM Dictated Date/Time: 09/02/2016 12:50 PM
--- NOTE | 2016-09-02 13:41 | Anesthesiology Progress Note ---
Anesthesia Post Op Note Date & Time September 02, 2016 at 13:42 Vital Signs Pain Intensity: 0 Vital Signs Past 12 Hours Date Time Temp Pulse Resp B/P Pulse Ox O2 Delivery O2 Flow Rate FiO2 09/02/16 13:15 36.9 78 16 133/80 97 Nasal Cannula 2 09/02/16 13:05 36.9 79 16 110/83 98 Nasal Cannula 2 09/02/16 12:55 78 12 134/75 97 Nasal Cannula 2 09/02/16 12:45 80 12 125/58 96 Nasal Cannula 2 09/02/16 12:38 36.7 86 12 118/69 96 Nasal Cannula 2 09/02/16 09:39 36.8 96 20 148/100 99 Room Air Notes Mental Status: alert / awake / arousable, participated in evaluation Pt Amnestic to Procedure: No (recall as expected) Nausea / Vomiting: adequately controlled Pain: adequately controlled Airway Patency, RR, SpO2: stable & adequate BP & HR: stable & adequate Hydration State: stable & adequate Neuraxial Anesthesia: was administered, sensory block is resolving Anesthetic Complications: no major complications apparent Pt doing well.
[2016-09-02] MEDS ORDERED: AMPHETAMINE ASP/SULF/DEXTRAMPH 20 MG TAB PO SCH (14:00)
[2016-09-02] MEDS ORDERED: MoRPHine SULFATE 4 MG/ML 1 ML CARP\\VIAL IV PRN (14:45)
[2016-09-02] MEDS: OXYCODONE HCL IR 5 MG TAB (IMMEDIATE RELEASE) PO PRN ×3 (15:04→19:59)
[2016-09-02] MEDS: MESALAMINE 250 MG CAPCR PO SCH ×2 (15:11→21:08)
[2016-09-02] MEDS: MoRPHine SULFATE 10 MG/ML CARP/VIAL IV PRN ×2 (16:40→21:06)
[2016-09-02] MEDS: FERROUS GLUCONATE 324 MG TAB PO SCH (18:17)
[2016-09-02] MEDS: CEFAZOLIN IV 2,000 MG in DEXTROSE 5% 50ML 50 ML IV SCH (18:20)
[2016-09-02] MEDS ORDERED: TRANEXAMIC ACID INJ 1,000 MG in SODIUM CHLORIDE 0.9% 100ML 100 ML IV ONE (19:00)
[2016-09-02] MEDS ORDERED: OXYCODONE HCL 10 MG TABCR (OXYCONTIN) PO SCH (21:00)
[2016-09-02] MEDS: ASPIRIN 325 MG ECTAB PO SCH (21:07)
[2016-09-02] MEDS: SENNA 8.6 MG TAB PO SCH (21:07)
[2016-09-02] MEDS: TRAZODONE HCL 50 MG TAB PO SCH (21:07)
[2016-09-02] MEDS: DOCUSATE SODIUM 100 MG CAP PO SCH (21:08)
[2016-09-02] MEDS: ACETAMINOPHEN 500 MG TAB PO SCH (21:10)
[2016-09-03] MEDS: OXYCODONE HCL IR 5 MG TAB (IMMEDIATE RELEASE) PO PRN ×5 (00:08→23:41)
[2016-09-03] MEDS: CEFAZOLIN IV 2,000 MG in DEXTROSE 5% 50ML 50 ML IV SCH (01:40)
[2016-09-03 03:10] VITALS: BP 115/73; PULSE 73; TEMP 36.8; O2SAT 94
[2016-09-03] MEDS: ACETAMINOPHEN 500 MG TAB PO SCH ×3 (06:02→22:17)
--- NOTE | 2016-09-03 06:59 | Orthopedic Progress Note ---
Orthopedic Progress Note Date of Service September 03, 2016. Subjective Post OP Day: 1 Denies: SOB, calf pain, chest pain, light headedness, nausea / vomiting Additional Notes: Pt with h/o chronic narcotic use in the past for various problems. C/O pain throughout the night. "Morphine takes the edge off" however she states she is an 8/10 this AM and has been painful throughout the night. No other complaints this AM. Objective calves soft nontender, N/V intact, dressing C/D/I, A&O x3, toes mobile, hemovac drainage (150ml latest shift) Date Time Temp Pulse Resp B/P Pulse Ox O2 Delivery O2 Flow Rate FiO2 09/03/16 03:10 36.8 73 17 115/73 94 Room Air 09/02/16 23:17 37.0 84 18 126/77 96 Room Air 09/02/16 19:50 Room Air 09/02/16 17:48 37.6 95 20 142/77 96 Nasal Cannula 2.0 09/02/16 16:15 37.3 98 18 130/71 98 Nasal Cannula 2.0 09/02/16 15:18 96 Nasal Cannula 2.0 09/02/16 15:09 37.3 87 18 111/76 97 Nasal Cannula 2.0 09/02/16 14:24 90 20 118/76 97 Nasal Cannula 2.0 09/02/16 14:00 Nasal Cannula 2.0 09/02/16 14:00 37.3 92 18 142/79 96 Nasal Cannula 2.0 09/02/16 13:45 36.9 78 16 105/71 96 Nasal Cannula 2 09/02/16 13:30 36.9 78 16 127/80 97 Nasal Cannula 2 09/02/16 13:15 36.9 78 16 133/80 97 Nasal Cannula 2 09/02/16 13:05 36.9 79 16 110/83 98 Nasal Cannula 2 09/02/16 12:55 78 12 134/75 97 Nasal Cannula 2 09/02/16 12:45 80 12 125/58 96 Nasal Cannula 2 09/02/16 12:38 36.7 86 12 118/69 96 Nasal Cannula 2 09/02/16 09:39 36.8 96 20 148/100 99 Room Air Laboratory Results 24 Hours: Test 09/03/16 04:44 Assessment & Plan Assessment: POD 1 s/p Left TKA Plan: Due to her chronic pain med use, we will increase her Oxycontin to 20mg bid, add Toradol q6h and dc Morphine and add Dilaudid IV PT/OT today Planning for OPPT Inhouse Planning Pain Management: Toradol, Oxycontin, Dilaudid, PO Tylenol, Oxy IR DVT Prophylaxis: TEDs, SCDs, ASA Discharge Planning Discharge Planning: home with oppt
[2016-09-03] MEDS: KETOROLAC TROMETHAMINE 30 MG/ML VIAL IV PRN ×3 (07:17→19:29)
[2016-09-03] MEDS: HYDROmorphone INJ 1 MG/ML SYR IV PRN ×4 (07:18→22:17)
[2016-09-03 07:21] LABS: HEMATOCRIT 32.5 % (37-47); MEAN CELL VOLUME 87.6 fL (80-100); MEAN CORPUSCULAR HEMOGLOBIN 27.5 pg (25-34); MEAN CORPUSCULAR HGB CONC 31.4 g/dl (32-36); MEAN PLATELET VOLUME 8.8 fL (7.4-10.4); PLATELET COUNT 567 K/uL (130-400); RED BLOOD COUNT 3.71 M/uL (4.2-5.4); WHITE BLOOD COUNT 18.21 K/uL (4.8-10.8)
[2016-09-03] MEDS: SODIUM CHLORIDE 0.9% 1000ML 1,000 ML IV SCH (07:27)
[2016-09-03] MEDS: AMPHETAMINE ASP/SULF/DEXTRAMPH 20 MG TAB PO SCH ×3 (07:27→15:04)
[2016-09-03 07:45] VITALS: O2SAT 96
[2016-09-03 07:50] VITALS: BP 130/92; PULSE 88; TEMP 36.8; O2SAT 96
[2016-09-03 07:50] LABS: BUN/CREATININE RATIO 18.1 (10-20); CALCIUM 8.2 mg/dl (8.5-10.1); CREATININE 0.65 mg/dl (0.60-1.20); POTASSIUM 4.4 mmol/L (3.5-5.1)
--- NOTE | 2016-09-03 07:53 | Anesthesiology Progress Note ---
Anesthesia Post Op Note Date & Time September 03, 2016 at 07:54 Vital Signs Pain Intensity: 7.0 Vital Signs Past 12 Hours Date Time Temp Pulse Resp B/P Pulse Ox O2 Delivery O2 Flow Rate FiO2 09/03/16 07:50 36.8 88 11 130/92 96 Room Air 09/03/16 03:10 36.8 73 17 115/73 94 Room Air 09/02/16 23:17 37.0 84 18 126/77 96 Room Air Notes Mental Status: alert / awake / arousable, participated in evaluation Pt Amnestic to Procedure: Yes Nausea / Vomiting: adequately controlled Pain: adequately controlled Airway Patency, RR, SpO2: stable & adequate BP & HR: stable & adequate Hydration State: stable & adequate Neuraxial Anesthesia: was administered, sensory block resolved Anesthetic Complications: no major complications apparent
[2016-09-03] MEDS: ESCITALOPRAM OXALATE 20 MG TAB PO SCH ×2 (08:54→12:02)
[2016-09-03] MEDS: MESALAMINE 250 MG CAPCR PO SCH ×3 (08:55→20:48)
[2016-09-03] MEDS: PANTOprazole SOD 40 MG TAB PO SCH (08:55)
[2016-09-03] MEDS: OXYCODONE HCL 10 MG TABCR (OXYCONTIN) PO SCH ×2 (08:55→20:47)
[2016-09-03] MEDS: MULTIVITAMIN TAB PO SCH (08:55)
[2016-09-03] MEDS: FERROUS GLUCONATE 324 MG TAB PO SCH ×3 (08:56→18:14)
[2016-09-03] MEDS: BuPROPion SR 150 MG TABCR PO SCH ×2 (08:56→12:02)
[2016-09-03] MEDS: DOCUSATE SODIUM 100 MG CAP PO SCH ×2 (08:57→20:49)
[2016-09-03] MEDS: ASPIRIN 325 MG ECTAB PO SCH ×2 (08:57→20:47)
[2016-09-03 15:54] VITALS: BP 146/85; PULSE 90; TEMP 37.1; O2SAT 97
[2016-09-03] MEDS: SENNA 8.6 MG TAB PO SCH (20:49)
[2016-09-03] MEDS: TRAZODONE HCL 50 MG TAB PO SCH (22:20)
[2016-09-03 23:21] VITALS: BP 144/91; PULSE 85; TEMP 37.6; O2SAT 95
[2016-09-04] MEDS: KETOROLAC TROMETHAMINE 30 MG/ML VIAL IV PRN ×4 (01:33→20:42)
[2016-09-04] MEDS: OXYCODONE HCL IR 5 MG TAB (IMMEDIATE RELEASE) PO PRN ×4 (04:23→21:48)
[2016-09-04] MEDS: HYDROmorphone INJ 1 MG/ML SYR IV PRN ×3 (05:16→14:43)
[2016-09-04] MEDS: ACETAMINOPHEN 500 MG TAB PO SCH ×3 (05:16→21:49)
[2016-09-04 06:27] VITALS: BP 145/89; PULSE 83; TEMP 37.1; O2SAT 95
[2016-09-04 07:44] VITALS: BP 150/102; PULSE 86; TEMP 37.2; O2SAT 96
[2016-09-04 07:49] VITALS: O2SAT 96
[2016-09-04] MEDS: ESCITALOPRAM OXALATE 20 MG TAB PO SCH ×2 (08:02→11:49)
[2016-09-04] MEDS: AMPHETAMINE ASP/SULF/DEXTRAMPH 20 MG TAB PO SCH ×3 (08:02→14:36)
[2016-09-04] MEDS: FERROUS GLUCONATE 324 MG TAB PO SCH ×3 (08:03→18:05)
[2016-09-04] MEDS: BuPROPion SR 150 MG TABCR PO SCH ×2 (08:03→11:50)
[2016-09-04] MEDS: DOCUSATE SODIUM 100 MG CAP PO SCH ×2 (08:03→20:44)
[2016-09-04] MEDS: MESALAMINE 250 MG CAPCR PO SCH ×3 (08:05→20:42)
[2016-09-04] MEDS: MULTIVITAMIN TAB PO SCH (08:05)
[2016-09-04] MEDS: OXYCODONE HCL 10 MG TABCR (OXYCONTIN) PO SCH ×2 (09:13→20:42)
[2016-09-04] MEDS: ASPIRIN 325 MG ECTAB PO SCH ×2 (09:14→20:42)
[2016-09-04] MEDS: PANTOprazole SOD 40 MG TAB PO SCH (11:10)
--- NOTE | 2016-09-04 15:11 | Orthopedic Progress Note ---
Orthopedic Progress Note Date of Service September 04, 2016. Subjective Post OP Day: 2 Additional Notes: Pt very concerned about going home. Pain control is better but still using IV meds at times. States that her Right knee was not 100% prior to this surgery and is concerned about getting home and then having pain that is not controlled. No other complaints. Objective calves soft nontender, N/V intact, dressing C/D/I, A&O x3, toes mobile Date Time Temp Pulse Resp B/P Pulse Ox O2 Delivery O2 Flow Rate FiO2 09/04/16 07:49 96 Room Air 09/04/16 07:44 37.2 86 12 150/102 96 Room Air 09/04/16 07:25 Room Air 09/04/16 06:27 37.1 83 16 145/89 95 Room Air 09/03/16 23:45 Room Air CPAP 09/03/16 23:21 37.6 85 16 144/91 95 Room Air 09/03/16 16:47 Room Air 09/03/16 15:54 37.1 90 17 146/85 97 Room Air Assessment & Plan Assessment: POD 2 s/p Left TKA Plan: Plan to add Celebrex to pain regimen. Increase OxyIR to 10 - 15mg due to h/o chronic narcotic use. Discussed holding off using Dilaudid. PT/OT Planning for OPPT Inhouse Planning Pain Management: Celebrex, Toradol, Oxycontin, Dilaudid, PO Tylenol, Oxy IR DVT Prophylaxis: TEDs, SCDs, ASA Discharge Planning Discharge Planning: home with oppt Pain Management: Celebrex, Oxycontin, PO Tylenol, Oxy IR DVT Prophylaxis: TEDs, ASA Therapy: Physical Therapy
[2016-09-04 15:17] VITALS: BP 145/70; PULSE 112; TEMP 37.4; O2SAT 96
[2016-09-04] MEDS ORDERED: CLB200 PO (15:24)
[2016-09-04] MEDS ORDERED: OXYSR10 PO (15:24)
[2016-09-04] MEDS ORDERED: ASPEC81 PO (15:24)
[2016-09-04] MEDS ORDERED: SNK PO (15:24)
[2016-09-04] MEDS ORDERED: ACET-1138 PO (15:24)
[2016-09-04] MEDS ORDERED: RXC5 PO (15:24)
--- NOTE | 2016-09-04 15:30 | Discharge Instructions ---
Discharge Instructions Date of Service September 04, 2016. Admission Reason for Admission: Left Knee Osteoarthritis Discharge Discharge Diagnosis / Problem: Left Knee Djd Discharge Goals Goal(s): Decrease discomfort, Improve function Activity Recommendations Activity Limitations: per Instructions/Follow-up section Weightbearing Status: Left weightbearing (as tolerated) . Instructions / Follow-Up Instructions / Follow-Up ACTIVITY RECOMMENDATIONS: SELF CARE INSTRUCTIONS AFTER TOTAL KNEE REPLACEMENT A. You may need to continue a physical therapy program after discharge from the hospital. There are several options available to you. Your doctor will assist you in selecting the best one for you. 1. An out-patient facility 2 to 3 times a week for therapy or home therapy. 2. Continue working on all exercises taught to you in the hospital. Your goals should be to increase bending of your knee to 90 degrees and beyond and to fully straighten your knee. B. You may progress at your own pace from walking with a walker or crutches to a cane; then to no assistive devices. C. Make walking a part of your daily routine. Be up as much as comfortable with rest periods throughout the day. Rest with leg elevation is very important. Use the ice wrap frequently for the first 3-4 weeks. D. There are no restrictions on activities. You may ride in a car, shop, participate in insurance instructor and all social activities. E. Wear the long elastic stockings (BRENDA hose) 20 hours a day for 2 weeks after surgery. They can be removed several times a day for laundering and for a bath. F. You may shower, no tub baths until cleared by your doctor. SPECIAL CARE INSTRUCTIONS: VERY IMPORTANT TO READ AND REVIEW A. There are a few signs you need to watch for after you are home. Call [facility] if you notice any of the followin. Increased severe knee pain. Some pain is expected especially when you exercise. 2. Increased swelling in your leg or knee; pain or swelling of the calf muscle in either lower leg. 3. Any fluid drainage from the incision. 4. Shortness of breath or chest pain. B. Please call [facility] at if you have any concerns or questions about your operation or recovery. The doctor or his nurse will return your call promptly. C. You must take antibiotics before dental work, bladder, bowel or other surgery. Your doctor will provide you with a permanent care to carry describing this precaution. IMPORTANT: * REMEMBER TO TAKE ASPIRIN, 81 MG, TWICE DAILY FOR 4 WEEKS UNLESS OTHERWISE DIRECTED. THIS IS YOUR BLOOD THINNER. * HIGH RISK PATIENTS MAY BE PRESCRIBED A STRONGER BLOOD THINNER. THIS WILL BE PROVIDED AT DISCHARGE. * CALL IF INCREASED PAIN, REDNESS, DRAINAGE OR FEVER GREATER THAT 101. * WEAR BRENDA HOSE 20 HOURS PER DAY FOR 2 WEEKS. * Silverlon- This is a large adhesive bandage that contains silver ions. This helps your incision heal by fighting off bacteria and protecting it from the outside environment. You are permitted to shower with this dressing. This will remain on your incision for 7 days and then should be removed. Some visible blood or drainage through the dressing window is normal. If there is significant drainage or leaking noted before the 7 days notify your doctor's office immediately. Once removed, keep incision clean and dry. If there is any drainage or redness noted, please call your surgeon. . FOLLOW UP VISIT: If appointment is not already scheduled: Please call [facility] to make a follow-up appointment for 2 weeks after your surgery at . Current Hospital Diet Patient's current hospital diet: Regular Diet Discharge Diet Recommended Diet: Regular Diet Procedures Procedures Performed: Left total knee arthroplasty Pending Studies Studies pending at discharge: no Medical Emergencies . Who to Call and When: Medical Emergencies: If at any time you feel your situation is an emergency, please call 911 immediately. . Non-Emergent Contact Non-Emergency issues call your: Surgeon Call Non-Emergent contact if: temperature is above 101.5, your pain is not controlled, your pain is worsening, wound has increased drainage, wound has increased redness . "Provider Documentation" section prepared by Octavio Dash. . VTE Core Measure Inpt VTE Proph given/why not?: Other Anticoagulation, T.E.D. Stockings, SCD's [place] Drug Monitoring Program Search Results: patient reviewed within database, see additional documentation Drug Monitoring Findings: Patient receiving Percocet through pain management contract in [place]. Last Rx filled August 15. Approximately 1 week left of pain meds. Pt will need to f /u with her Pain Management MD once her initial Rx's given by Dr Calero are finished.
[2016-09-04] MEDS: CeleBREX 200 MG CAP PO SCH (20:41)
[2016-09-04] MEDS: TRAZODONE HCL 50 MG TAB PO SCH (20:41)
[2016-09-04] MEDS: SENNA 8.6 MG TAB PO SCH (20:44)
[2016-09-04 23:10] VITALS: BP 129/80; PULSE 88; TEMP 36.9; O2SAT 94
[2016-09-05] MEDS: OXYCODONE HCL IR 5 MG TAB (IMMEDIATE RELEASE) PO PRN ×3 (04:10→12:02)
[2016-09-05] MEDS: ACETAMINOPHEN 500 MG TAB PO SCH (05:58)
[2016-09-05] MEDS: AMPHETAMINE ASP/SULF/DEXTRAMPH 20 MG TAB PO SCH ×2 (07:39→12:06)
[2016-09-05] MEDS: ESCITALOPRAM OXALATE 20 MG TAB PO SCH ×2 (07:39→12:03)
[2016-09-05] MEDS: BuPROPion SR 150 MG TABCR PO SCH ×2 (07:40→12:03)
[2016-09-05 07:50] VITALS: BP 134/84; PULSE 86; TEMP 36.7; O2SAT 96
[2016-09-05] MEDS: DOCUSATE SODIUM 100 MG CAP PO SCH (09:00)
[2016-09-05] MEDS: PANTOprazole SOD 40 MG TAB PO SCH (09:00)
[2016-09-05] MEDS: ASPIRIN 325 MG ECTAB PO SCH (09:01)
[2016-09-05] MEDS: MULTIVITAMIN TAB PO SCH (09:01)
[2016-09-05] MEDS: FERROUS GLUCONATE 324 MG TAB PO SCH ×2 (09:01→12:58)
[2016-09-05] MEDS: MESALAMINE 250 MG CAPCR PO SCH (09:01)
[2016-09-05] MEDS: CeleBREX 200 MG CAP PO SCH (09:01)
[2016-09-05] MEDS: OXYCODONE HCL 10 MG TABCR (OXYCONTIN) PO SCH (09:01)
--- NOTE | 2016-09-05 09:28 | Orthopedic Progress Note ---
Orthopedic Progress Note Date of Service September 05, 2016. Subjective Reports: feeling well, Denies: complaints Additional Notes: Pain control is adequate with changes. No new complaints. Ready to go home. Objective calves soft nontender, N/V intact, dressing C/D/I, A&O x3, toes mobile Date Time Temp Pulse Resp B/P Pulse Ox O2 Delivery O2 Flow Rate FiO2 09/05/16 07:50 36.7 86 17 134/84 96 Room Air 09/05/16 07:40 Room Air 09/04/16 23:10 36.9 88 16 129/80 94 Room Air 09/04/16 19:45 Room Air 09/04/16 16:30 Room Air 09/04/16 15:17 37.4 112 17 145/70 96 Room Air Assessment & Plan Assessment: POD 3 s/p Left TKA Plan: Pain control is better with Med changes Progressing with PT Plan for dc to home today Inhouse Planning Pain Management: Celebrex, Toradol, Oxycontin, Dilaudid, PO Tylenol, Oxy IR DVT Prophylaxis: TEDs, SCDs, ASA Discharge Planning Discharge Planning: home with oppt Pain Management: Celebrex, Oxycontin, PO Tylenol, Oxy IR DVT Prophylaxis: TEDs, ASA Therapy: Physical Therapy
[2016-09-05] MEDS ORDERED: CLB200 PO (09:43)
[2016-09-05 09:56] VITALS: BP 134/84; PULSE 86; TEMP 36.7; O2SAT 96
--- NOTE | 2016-09-05 22:31 | DISCHARGE SUMMARY ---
DISCHARGE DIAGNOSIS: Degenerative joint disease, left knee. SECONDARY DIAGNOSES: Sleep apnea with use of CPAP, obesity, anxiety, depression. CONSULTS: None. COMPLICATIONS: None. PROCEDURES: Left total knee arthroplasty performed by Dr. Calero on 09/02/2016. BRIEF HISTORY: As dictated in history and physical. HOSPITAL SUMMARY: The patient was admitted on the above-noted date and had the above-noted surgery performed which she tolerated well. On her first postoperative day, she was having pain control issues, and with her history of chronic narcotic use, her pain medications had to be adjusted. She denies shortness of breath, calf pain, or chest pain. No lightheadedness. No nausea. Calves were soft, nontender, neurovascularly intact. Dressings clean, dry and intact. Toes were mobile and vital signs were stable, she was afebrile. Hemoglobin was 10.2. She was started on physical therapy protocol and continued on DVT prophylaxis and pain management. By her second postoperative day, she was having better pain control but was still requiring IV Dilaudid. She was concerned about going home while still having to use the IV Dilaudid here. She had no other complaints, and calves were soft, nontender, neurovascularly intact. Dressings were clean, dry and intact. Toes were mobile. Vital signs were stable, she was afebrile. She was continued on PT protocol. Celebrex was added to her pain regimen. Her OxyIR was increased from 5-10 to 10-15 mg every 4 hours due to her chronic narcotic use and discussed with her that she needs to hold off on using anymore IV Dilaudid with increasing her p.o. oxycodone. The patient understood and did well overnight. By her third postoperative day, she was remaining stable. Pain control was adequate with the changes. She had no other complaints and it was felt she was ready to go home. Dressings clean, dry and intact. Toes were mobile. Vital signs were stable, she was afebrile, progressing with her physical therapy, and it was felt she could be discharged to home. For further review, please see chart. LABORATORY AND X-RAY DATA: As per chart. DISCHARGE INSTRUCTIONS: The patient was discharged to home in satisfactory condition on 09/05/2016. DIET: Regular. ACTIVITY: Follow TK instruction sheets and special care instructions as noted and follow up with Dr. Calero in 2 weeks. The patient to call for appointment if one has not been made for you. DISCHARGE MEDICATIONS: Celebrex 200 mg p.o. b.i.d., oxycodone 10-15 mg p.o. q. 4 hours p.r.n., OxyContin 20 mg p.o. q. 12 hours, and Senna 17.2 mg p.o. at bedtime. Resume home meds as listed and stop taking the original OxyContin 10 mg tablet and the original prescription for 5-10 mg of oxycodone. Of note, the patient has a history of having a pain management contract of receiving oxycodone 10 mg tablets in [place], [place]. She states that her pain management physician and Dr. Calero' office have been exchanging information and plans will be to get her back over to her pain management contract for further pain medications.
== END 2016-09-05 13:38 | disposition home health service (06) | DRG 470 ==
LOC: ENRESERVTM → ENRESERVDT → C.ACU 09:15 → C.3E 12:06
PROVIDERS: ADMIT Orthopaedic Surgery; ATTEND Orthopaedic Surgery
PROC: 0SRD0J9 Replacement of Left Knee Joint with Synthetic Substitute, Cemented, Open Approach (ICD-10-PCS; principal; 2016-09-02 10:15)
DX: M17.12 Unilateral primary osteoarthritis, left knee (principal); Z68.41 Body mass index [BMI] 40.0-44.9, adult; G47.30 Sleep apnea, unspecified; E66.9 Obesity, unspecified; F32.9 Major depressive disorder, single episode, unspecified; Z96.651 Presence of right artificial knee joint